=== PATIENT | male | born 1990 | race Two or more races ===

== ENCOUNTER 2025-01-28 10:42 | Emergency (ER) | payer OTHER ==
[~2025-01-28] VITALS: Ht 175.3 cm; Wt 98.8 kg
--- NOTE | 2025-01-28 11:32 | ED.PDOC ---
HPI Comments 34 year old male who is right hand dominant presents to the ED for the c/c of a Laceration to the Medial aspect of the 3rd Phalanx, in-between the PIP and DIP of the right hand. Pt states that he was cutting potatoes for breakfast, where the knife slipped causing the laceration. Denies any associated modifiers or symptoms at this time. Pain rated 0. Denies numbness tingling. Last TDAP within 5 years. Chief Complaint: Laceration Time Seen by MD: 11:25 Reviewed Notes: Nurses Notes, Medications, Allergies Allergies: Coded Allergies: NO KNOWN ALLERGIES (Unverified , 01/28/25) Information Source: Patient Mode of Arrival: Ambulatory Severity: Mild Severity of Laceration: Uncontrolled Bleeding Complexity: Simple Timing: Hours Prehospital treatment: None Laceration Location: Hand, Digit #3 Mechanism: Knife Last Tetanus: UTD Laceration Length (cm): 2 Skin Type: Avulsion, Flap, Linear Depth of Injury: Skin, Mucosa Tendon Injury: 0% Capillary Refill: < 3 seconds Tender: Mild Discharge: None Erythema: Localized to Wound Edges, Surrounding Tissues Associated Signs and Symptoms: Abrasion, Bleeding Past Medical History PAST MEDICAL HISTORY: Denies Surgical History: Unknown Family History Family History: Unknown Social History Smoker: Non-Smoker Alcohol: Denies ETOH Use Drugs: Denies Drug Use Lives In: Home Constitutional: denies: chills, diaphoresis, fatigue, fever, malaise, sweats, weakness, others EENTM: denies: blurred vision, double vision, ear bleeding, ear discharge, ear drainage, ear pain, ear ringing, eye pain, eye redness, hearing loss, mouth pain, mouth swelling, nasal discharge, nose bleeding, nose congestion, nose pain, photophobia, tearing, throat pain, throat swelling, voice changes, others Respiratory: denies: cough, hemoptysis, orthopnea, SOB at rest, shortness of breath, SOB with excertion, stridor, wheezing, others Cardiovascular: denies: chest pain, dizzy spells, diaphoresis, Dyspnea on exertion, edema, irregular heart beat, left arm pain, lightheadedness, palpitations, PND, syncope, others Gastrointestinal: denies: abdomen distended, abdominal pain, blood streaked bowels, constipated, diarrhea, dysphagia, difficulty swallowing, hematemesis, melena, nausea, poor appetite, poor fluid intake, rectal bleeding, rectal pain, vomiting, others Genitourinary: denies: burning, dysuria, flank pain, frequency, hematuria, incontinence, penile discharge, penile sore, pain, testicle pain, testicle swelling, urgency, others Neurological: denies: dizziness, fainting, headache, left sided numbness, left sided weakness, numbness, paresthesia, pre-existing deficit, right sided numbness, right sided weakness, seizure, speech problems, tingling, tremors, weakness, others Musculoskeletal: denies: back pain, gout, joint pain, joint swelling, muscle pain, muscle stiffness, neck pain, others Integumetry: reports: laceration; denies: bruises, change in color, change in hair/nails, dryness, lesions, lumps, rash, wounds, others Allergic/Immunocompromised: denies: Difficulty Healing, Frequent Infections, Hives, Itching, others Hematologic/Lymphatic: denies: anemia, blood clots, easy bleeding, easy bruising, swollen glands, others Endocrine: denies: excessive hunger, excessive sweating, excessive thirst, excessive urination, flushing, intolerance to cold, intolerance to heat, unexplained weight gain, unexplained weight loss, others Psychiatric: denies: anxiety, bipolar disorder, depression, hopeless, panic disorder, schizophrenia, sleepless, suicidal, others All Other Systems: Reviewed and Negative Physical Exam General Appearance: No Apparent Distress, Normal HEENT: Normal ENT Inspection, Pharynx Normal, TMs Normal Neck: Full Range of Motion, Non-Tender, Normal, Normal Inspection Respiratory: Chest Non-Tender, Lungs Clear, No Accessory Muscle Use, No Respiratory Distress, Normal Breath Sounds Cardiovascular: No JVD, No Murmur, No Gallop, Normal Peripheral Pulses Breast Exam: Deferred Gastrointestinal: Non Tender, No Pulsatile Mass, Normal Bowel Sounds, Soft Genitalia: Deferred Pelvic: Deferred Rectal: Deferred Extremities: No calf tenderness, Normal range of motion, No pedal edema Musculoskeletal : Location: Right Extremity Location: Finger 3 (Avulsionto the Medial aspect of the 3rd Phalanx, in-between the PIP and DIP. Wound aprox 2x2 cm. No FB. Mild bleeding. FDS/FDP intact. Nuero vascular senstaion intact) Apperance: Normal Neurologic: Alert, No Motor Deficits, Normal Mood Cerebellar Function: Normal Reflexes: Normal Skin: Dry, Normal Color, Warm Lymphatic: No Adenopathy Was a procedure done? Was a procedure done?: No Differential diagnosis Generic Laceration: Hematoma, Fracture, Retained Foriegn Body, Neurovascular Injury, Tendon Injury, Abrasion/Contusion, Laceration, Avulsion X-Ray, Labs, Meds, VS Vital Signs Date Time Temp Pulse Resp B/P (MAP) Pulse Ox O2 Delivery O2 Flow Rate FiO2 01/28/25 13:10 73 16 98 Room Air 01/28/25 13:10 98.7 62 16 142/73 (96) 97 98.7 01/28/25 11:10 98.8 94 16 157/98 (117) 98 98.8 X-Ray, Labs, Meds, VS Comment 34 year old male presents to the ED for the c/c of a Laceration to the Medial aspect of the 3rd Phalanx, in-between the PIP and DIP of the right hand. Patient arrives alert and oriented, ABC's intact, afebrile, vital signs stable, saturating well in room air The skin surrounding the laceration was scrubbed with Betadine soaked sterile gauze The laceration was irrigated under high-pressure with a 60 mL syringe A total of 1L sterile water was used. Including diluted Betadine solution The laceration was prepped in sterile fashion with sterile drapes On examination under direct light, there was no foreign body seen The abrasion was dressed w/ pressure dressing and hemostasis was obtained prior to dc. There were no complications Education and follow-up instructions provided Wound check in 2 days Return sooner for signs of infection such as fevers, increased pain, redness, green, yellow discharge, or any concerns Keep wound dry for 24 to 48 hours; dry dressing may be changed Protect from sunlight and keep area clean and dry. Use soap and water if it gets dirty High risk of possible scarring and education provided on ways to minimize scarring after wound heals Also provided education on possible complications post procedure including wound dehiscence, infection, etc. Additional MDM Review of External, Non-ED records: External records reviewed. Discussion with independent historian (EMS, family) history obtained from the patient/parents (if applicable) at bedside Chronic conditions affecting care: None Social determinants of health affecting care: None Time of 1ST Reevaluation: 11:56 Reevaluation 1ST: Unchanged Time of 2ND Reevaluation: 12:00 Reevaluation 2ND: Improved Patient Education/Counseling: Diagnosis, Treatment Family Education/Counseling: No Family Present Departure 1 Departure Time of Disposition: 12:45 Impression: Primary Impression: Finger abrasion Qualified Codes: S60.419A - Abrasion of unspecified finger, initial encounter Disposition: HOME / SELF CARE / HOMELESS Condition: Stable Discharged With: Self Critical Care Note Critical Care Time?: No Stability Stability form required: No Heart Score Heart Score: Heart Score Response (Comments) Value History N/A 0 EKG N/A 0 Age N/A 0 Risk Factors N/A 0 Troponin N/A 0 Total 0 I personally scribed for SAMANTHA AMHMOOD NP ([email or web address]) on 01/28/25 at 11:32. Electronically submitted by Jasper Jyoce ([email or web address]). SAMANTHA MAHMOOD NP Jan 28, 2025 11:32
[2025-01-28 13:10] VITALS: BP 142/73; PULSE 73; RESP 16; TEMP 98.7; O2SAT 98
== END 2025-01-28 13:13 | disposition home or self-care (01) ==
LOC: ER 10:42
DX: S60.414A Abrasion of right ring finger, initial encounter (principal); W26.0XXA Contact with knife, initial encounter; Y93.89 Activity, other specified; Y92.89 Other specified places as the place of occurrence of the external cause; Y99.8 Other external cause status